=== PATIENT | female | born 1980 | race African-American/Black ===

== ENCOUNTER 2019-05-22 09:01 | Emergency (ER) | payer OTHER ==
[~2019-05-22] VITALS: Ht 160 cm; Wt 71.4 kg
--- NOTE | 2019-05-22 09:03 | NUR ---
Patient transferred to bed 6 via wheelchair by tech. RN evaluating patient at bedside.
[2019-05-22 09:10] VITALS: BP 129/87
--- NOTE | 2019-05-22 09:10 | NUR ---
Dr. Whitten evaluating patient at bedside.
--- NOTE | 2019-05-22 09:13 | NUR ---
Note undone in EDM - 05/22/19 at 0958 by MED PT C/O INTERMITENT LEFT FLANK PAIN WITH NAUSEA X 2 DAYS. LT FLANK TENDERNESS ON PALPATION. PATIENT STATES PAIN OF 0/10 AT THIS TIME; VSS; PATIENT POSITIONED FOR COMFORT; HOB ELEVATED; BEDRAILS UP X2; BED DOWN. ER MADE AWARE OF PT STATUS.
--- NOTE | 2019-05-22 09:13 | NUR ---
PT C/O INTERMITENT RIGHT FLANK PAIN WITH NAUSEA X 2 DAYS. RT FLANK TENDERNESS ON PALPATION. PATIENT STATES PAIN OF 9/10 AT THIS TIME; VSS; PATIENT POSITIONED FOR COMFORT; HOB ELEVATED; BEDRAILS UP X1; BED DOWN. ER MD MADE AWARE OF PT STATUS.
--- NOTE | 2019-05-22 09:13 | NUR ---
Note undone in EDM - 05/22/19 at 0958 by MED PT C/O INTERMITENT RIGHT FLANK PAIN WITH NAUSEA X 2 DAYS. RT FLANK TENDERNESS ON PALPATION. PATIENT STATES PAIN OF 0/10 AT THIS TIME; VSS; PATIENT POSITIONED FOR COMFORT; HOB ELEVATED; BEDRAILS UP X2; BED DOWN. ER MADE AWARE OF PT STATUS.
[2019-05-22] MEDS ORDERED: MORPHINE SULFATE 4 MG/ML SYR IVP ONE ×2 (09:15→10:30)
[2019-05-22] MEDS ORDERED: ONDANSETRON 4 MG/2 ML VIAL IVP ONE (09:15)
[2019-05-22 09:43] LABS: APPEARANCE,URINE SL CLOUDY (CLEAR); BASOPHILS # (AUTO) 0.1 K/uL (0.00-0.22); BASOPHILS % (AUTO) 0.8 % (0.0-2.0); BILIRUBIN,URINE NEGATIVE (NEGATIVE); BLOOD, URINE 3+ (NEGATIVE); COLOR,URINE YELLOW (YELLOW); EOSINOPHILS # (AUTO) 0.2 K/uL (0-0.4); EOSINOPHILS % (AUTO) 1.3 % (0.0-4.0); HEMATOCRIT 39.3 % (36-48); HEMOGLOBIN 12.5 g/dL (12.0-16.0); LEUKOCYTE ESTERASE ,URINE NEGATIVE (NEGATIVE); LYMPHOCYTES # (AUTO) 1.9 K/uL (2.5-16.5); MEAN CORPUSCULAR HEMOGLOBIN 28 pg (27-31); MEAN CORPUSCULAR HGB CONC 32 g/dL (33-37); MEAN CORPUSCULAR VOLUME 87.1 fL (80-94); MONOCYTES # (AUTO) 0.7 K/uL (0.8-1.0); MONOCYTES % (AUTO) 5.1 % (1.7-9.3); NEUTROPHILS # (AUTO) 10.6 K/uL (1.8-7.7); NEUTROPHILS % (AUTO) 78.8 % (42.2-75.2); NITRITE, URINE NEGATIVE (NEGATIVE); PLATELET COUNT (AUTO) 274 K/uL (140-450); RED BLOOD CELL COUNT(AUTO) 4.51 MIL/uL (4.20-5.40); RED CELL DISTRIBUTION WIDTH 13.4 % (11.6-13.7); UGLUCOSE NEGATIVE (NEGATIVE); WHITE BLOOD COUNT (AUTO) 13.4 K/uL (4.8-10.8)
[2019-05-22 09:48] LABS: ANION GAP 13.7 (8-16); CARBON DIOXIDE 23.1 mmol/L (21-32); CREATININE 0.8 mg/dL (0.6-1.3); POTASSIUM 3.8 mmol/L (3.5-5.1)
[2019-05-22 09:53] LABS: RBC,URINE 80-100 /HPF (0-5); WBC,URINE 0-5 /HPF (0-5)
[2019-05-22 09:54] LABS: ALBUMIN 3.2 g/dL (3.4-5.0); TOTAL BILIRUBIN 0.2 mg/dL (0.0-1.0)
[2019-05-22] MEDS ORDERED: NACL 0.9% 1,000 ML IV ONE (10:45)
--- NOTE | 2019-05-22 11:37 | NUR ---
SPOKE TO DR. SANDOVAL AND RECEIVED VERBAL ORDER OF AD[place] [place] RENAL STONES AND REGULAR DIET.
--- NOTE | 2019-05-22 11:38 | NUR ---
Dr. Tellez evaluating patient at bedside.
--- NOTE | 2019-05-22 11:38 | NUR ---
Isela rowell in ED - 05/22/[address] ROBERTSON IS EVALUATING PT AT BEDSIDE.
--- NOTE | 2019-05-22 11:39 | NUR ---
DR. ROBERTSON CANCELED PT'S ADMISSION.
[2019-05-22 11:51] VITALS: BP 127/63
--- NOTE | 2019-05-22 11:51 | NUR ---
Patient discharged with v/s stable. Written and verbal after care instructions given and explained. Patient verbalized understanding. Ambulatory with steady gait. All questions addressed prior to discharge. Advised to follow up with PMD. Dr. Tellez gave pt the prescription and note for work. Labs results and CT scan report and CD provided to pt. Educated pt regarding food choices and increase water intake to help pass renals tones.
== END 2019-05-22 11:51 | disposition home or self-care (01) ==
LOC: MED 09:01
DX: N13.9 Obstructive and reflux uropathy, unspecified (principal); N20.0 Calculus of kidney; F17.210 Nicotine dependence, cigarettes, uncomplicated; Z71.6 Tobacco abuse counseling
CPT/HCPCS: 36415; 74176; 80053; 81001; 81025; 83690; 85025; 96374; 96375; 96376; 99284; J2270; J2405; J7030

== ENCOUNTER 2019-08-01 11:43 | Emergency (ER) | payer OTHER ==
[~2019-08-01] VITALS: Ht 160 cm; Wt 72.6 kg
[2019-08-01 11:45] VITALS: BP 119/71
--- NOTE | 2019-08-01 11:45 | NUR ---
TO BED # 11 AMBULATORY
[2019-08-01] MEDS ORDERED: MORPHINE SULFATE 4 MG/ML SYR IVP ONE (11:55)
[2019-08-01] MEDS ORDERED: NACL 0.9% 1,000 ML IV ONE (11:55)
[2019-08-01] MEDS ORDERED: ONDANSETRON 4 MG/2 ML VIAL IVP ONE (11:55)
--- NOTE | 2019-08-01 11:56 | NUR ---
C/O LEFT FLANK PAIN 10/, RADIATING TO HER BACK STARTING LAST NIGHT. PT GRUNTING AND MOANING, HAS NOT TAKEN ANY MEDICATION FOR PAIN. DENIES N/V/D. DENIES DYSURIA. PT TACHY AT 100. PT ALERT AND AWAKE, FAMILY BEDSIDE.
--- NOTE | 2019-08-01 11:57 | NUR ---
dr bolanos at bedside
--- NOTE | 2019-08-01 12:00 | NUR ---
lab at bedside
--- NOTE | 2019-08-01 12:03 | NUR ---
PT ASSISTED TO RESTROOM, FAMILY MEMBER ASSISTING IN RESTROOM
--- NOTE | 2019-08-01 12:06 | NUR ---
US tech at bedside for exam.
--- NOTE | 2019-08-01 12:19 | NUR ---
NS BOLUS, MORPHINE, AND ZOFRAN ADMINISTERED BY SONA WESTBROOK
[2019-08-01 12:29] LABS: ANION GAP 17.1 (8-16); CARBON DIOXIDE 22.7 mmol/L (21-32); CREATININE 0.9 mg/dL (0.6-1.3); POTASSIUM 3.8 mmol/L (3.5-5.1)
[2019-08-01 12:35] LABS: ALBUMIN 3.5 g/dL (3.4-5.0); TOTAL BILIRUBIN 0.3 mg/dL (0.0-1.0)
[2019-08-01 12:59] LABS: APPEARANCE,URINE CLEAR (CLEAR); BILIRUBIN,URINE NEGATIVE (NEGATIVE); BLOOD, URINE NEGATIVE (NEGATIVE); COLOR,URINE YELLOW (YELLOW); LEUKOCYTE ESTERASE ,URINE NEGATIVE (NEGATIVE); NITRITE, URINE NEGATIVE (NEGATIVE); PH,URINE 5.5 (5.0-9.0); UGLUCOSE NEGATIVE (NEGATIVE)
[2019-08-01 13:01] LABS: BASOPHILS # (AUTO) 0.1 K/uL (0.00-0.22); BASOPHILS % (AUTO) 1.9 % (0.0-2.0); EOSINOPHILS # (AUTO) 0.3 K/uL (0-0.4); HEMATOCRIT 38.6 % (36-48); HEMOGLOBIN 12.5 g/dL (12.0-16.0); LYMPHOCYTES % (AUTO) 29.7 % (20.5-51.1); MEAN CORPUSCULAR HEMOGLOBIN 28 pg (27-31); MEAN CORPUSCULAR HGB CONC 32 g/dL (33-37); MEAN CORPUSCULAR VOLUME 85.9 fL (80-94); MONOCYTES # (AUTO) 0.3 K/uL (0.8-1.0); NEUTROPHILS # (AUTO) 4.1 K/uL (1.8-7.7); NEUTROPHILS % (AUTO) 59.4 % (42.2-75.2); PLATELET COUNT (AUTO) 267 K/uL (140-450); RED CELL DISTRIBUTION WIDTH 13.7 % (11.6-13.7); WHITE BLOOD COUNT (AUTO) 6.9 K/uL (4.8-10.8)
--- NOTE | 2019-08-01 13:25 | NUR ---
NADR AT THIS TIME, PAIN 04/29
[2019-08-01] MEDS ORDERED: KETOROLAC 30 MG/ML VIAL IM/IVP ONE (13:40)
--- NOTE | 2019-08-01 14:00 | NUR ---
TORADOL IVP ADMINISTERED BY GLEN RN FOR PTS PAIN 05/29 AT THIS TIME
--- NOTE | 2019-08-01 14:20 | NUR ---
NADRS . PAIN LEVEL AT 5/10
--- NOTE | 2019-08-01 14:53 | NUR ---
Dr. Ortega is re-evaluating the patient at bedside.
--- NOTE | 2019-08-01 15:04 | NUR ---
Patient discharged with v/s stable. Written and verbal after care instructions given and explained kidney stones. Patient alert, oriented and verbalized understanding of instructions. Ambulatory with steady gait. All questions addressed prior to discharge. ID band removed. Patient advised to follow up with PMD. Rx of norco,ibuprofen ,flomax,miralax, and zofran given. Patient educated on indication of medication including possible reaction and side effects. Opportunity to ask questions provided and answered.pt given excuse for work ,awake ,alert ,ambulatory with steady gait . advise pt not to drive when taking norco p.o.
[2019-08-01 15:06] VITALS: BP 119/71
== END 2019-08-01 15:04 | disposition home or self-care (01) ==
LOC: MED 11:43
DX: N20.0 Calculus of kidney (principal); K59.00 Constipation, unspecified; M54.9 Dorsalgia, unspecified; H57.89 Other specified disorders of eye and adnexa
CPT/HCPCS: 36415; 76770; 80053; 81003; 81025; 83690; 85025; 96374; 96375; 99284; J1885; J2270; J2405; Q0092

== ENCOUNTER 2019-08-19 05:24 | Emergency (ER) | payer OTHER ==
[~2019-08-19] VITALS: Ht 157.5 cm; Wt 59.0 kg
[2019-08-19 05:25] VITALS: BP 136/56
--- NOTE | 2019-08-19 05:25 | NUR ---
TO BED #04 VIA WHEELCHAIR
[2019-08-19] MEDS ORDERED: NACL 0.9% 500 ML IV ONE (05:33)
[2019-08-19] MEDS ORDERED: KETOROLAC 30 MG/ML VIAL IVP ONE (05:35)
[2019-08-19] MEDS ORDERED: ONDANSETRON 4 MG/2 ML VIAL IVP ONE (05:35)
--- NOTE | 2019-08-19 05:37 | NUR ---
PT C/O TINGLING SENSATION ON BILATERAL ARMS. STARTED AFTER FLANK PAIN STARTED.
--- NOTE | 2019-08-19 05:37 | NUR ---
38 Y/O FEMALE PRESENTS TO ED, C/O BILAT FLANK 05/29. PAIN STARTED A COUPLE OF DAYS AGO. PT C/O NAUSEA AND VOMITING. DENIES ANY DIARRHEA. BS ACTIVE X4 QUADRANTS. ABDOMEN SOFT AND NONTENDER. PT DENIES ANY CHEST PAIN. NO MEDICATIONS TAKEN PRIOR TO COMING TO ED. PT VSS. ERMD AWARE. AND SON AT BEDSIDE. WILL CONTINUE TO MONITOR.
[2019-08-19] MEDS ORDERED: MORPHINE SULFATE 2 MG/ML SYR IVP ONE ×2 (05:50→06:50)
--- NOTE | 2019-08-19 05:50 | NUR ---
PT MOVED TO BED 3 VIA [facility].
--- NOTE | 2019-08-19 05:50 | NUR ---
BLOOD AND URINE SENT TO LAB AT THIS TIME
--- NOTE | 2019-08-19 06:28 | NUR ---
PT TAKEN CT ON WHEELCHAIR
--- NOTE | 2019-08-19 07:05 | NUR ---
RECEIVED REPORT FROM DENNISE WESTBROOK.
--- NOTE | 2019-08-19 07:26 | NUR ---
PT WENT TO RESTROOM ACCOMPANIED BY FAMILY.
--- NOTE | 2019-08-19 07:31 | NUR ---
PT BACK ON BED PAIN LEVEL AT 10.
--- NOTE | 2019-08-19 08:10 | NUR ---
dr peralta at bedside ,explain lisa results to pt .
[2019-08-19 08:14] LABS: ANION GAP 21.8 (8-16); CARBON DIOXIDE 19.7 mmol/L (21-32); CREATININE 1.2 mg/dL (0.6-1.3); POTASSIUM 3.5 mmol/L (3.5-5.1)
[2019-08-19] MEDS ORDERED: HYDROcodone/APAP 10/325 MG 1 TAB TAB PO SCH (08:15)
[2019-08-19 08:17] LABS: APPEARANCE,URINE CLEAR (CLEAR); BILIRUBIN,URINE NEGATIVE (NEGATIVE); BLOOD, URINE NEGATIVE (NEGATIVE); LEUKOCYTE ESTERASE ,URINE NEGATIVE (NEGATIVE); NITRITE, URINE NEGATIVE (NEGATIVE); UGLUCOSE NEGATIVE (NEGATIVE)
--- NOTE | 2019-08-19 08:22 | NUR ---
gave meds to pt.
[2019-08-19 08:35] LABS: COLOR,URINE STRAW (YELLOW)
[2019-08-19 08:52] VITALS: BP 139/79
--- NOTE | 2019-08-19 08:52 | NUR ---
Patient discharged with v/s stable. Written and verbal after care instructions given and explained kidney stones. Patient alert, oriented and verbalized understanding of instructions. Ambulatory with steady gait. All questions addressed prior to discharge. ID band removed. Patient advised to follow up with PMD. Rx of norco and flomax given. Patient educated on indication of medication including possible reaction and side effects. Opportunity to ask questions provided and answered.pt given excuse from work.
== END 2019-08-19 08:52 | disposition home or self-care (01) ==
LOC: MED 05:24
DX: N20.0 Calculus of kidney (principal); R11.2 Nausea with vomiting, unspecified; R00.0 Tachycardia, unspecified
CPT/HCPCS: 36415; 74176; 80048; 81003; 96361; 96374; 96375; 96376; 99284; J1885; J2270; J2405; J7030

== ENCOUNTER 2019-10-20 10:10 | Emergency (ER) | payer SELFPAY ==
[~2019-10-20] VITALS: Ht 160 cm; Wt 68.0 kg
[2019-10-20 10:29] VITALS: BP 130/73
--- NOTE | 2019-10-20 10:47 | NUR ---
38 Y/O F C/C LEFT SIDE BACK PAIN 10/10, STABBING SENSATION, DUE TO KIDNEY STONES X 1 YEAR. PER PT PAIN PROGRESSIVELY WORSE. PT NKA. HX MIGRAINES,STONES. NO RX. COMPLAINTS OF NAUSEA, AND TINGLING SENSATION ON BILATERAL FINGERS. NEURO WDL, CMS/ROM WDL. SIDE RAIL X1.
[2019-10-20] MEDS ORDERED: KETOROLAC 30 MG/ML VIAL IVP ONE (10:50)
[2019-10-20] MEDS ORDERED: NACL 0.9% 1,000 ML IV ONE (10:50)
--- NOTE | 2019-10-20 12:18 | NUR ---
ERMD NOTIFIED OF PT PAIN STATUS
--- NOTE | 2019-10-20 12:23 | NUR ---
ERMD AT BEDSIDE
[2019-10-20] MEDS ORDERED: MORPHINE SULFATE 4 MG/ML SYR IVP ONE (12:25)
--- NOTE | 2019-10-20 12:25 | NUR ---
PT RESTING IN BED, SIDE RAIL X1
[2019-10-20 13:18] LABS: BASOPHILS # (AUTO) 0.1 K/uL (0.00-0.22); BASOPHILS % (AUTO) 1.2 % (0.0-2.0); EOSINOPHILS # (AUTO) 0.3 K/uL (0-0.4); EOSINOPHILS % (AUTO) 4.1 % (0.0-4.0); HEMATOCRIT 37.3 % (36-48); HEMOGLOBIN 12.6 g/dL (12.0-16.0); LYMPHOCYTES # (AUTO) 2.5 K/uL (2.5-16.5); MEAN CORPUSCULAR HEMOGLOBIN 29 pg (27-31); MEAN CORPUSCULAR HGB CONC 34 g/dL (33-37); MEAN CORPUSCULAR VOLUME 84.5 fL (80-94); MONOCYTES # (AUTO) 0.4 K/uL (0.8-1.0); MONOCYTES % (AUTO) 6.1 % (1.7-9.3); NEUTROPHILS # (AUTO) 3.9 K/uL (1.8-7.7); NEUTROPHILS % (AUTO) 54.6 % (42.2-75.2); PLATELET COUNT (AUTO) 245 K/uL (140-450); RED BLOOD CELL COUNT(AUTO) 4.42 MIL/uL (4.20-5.40); RED CELL DISTRIBUTION WIDTH 13.3 % (11.6-13.7); WHITE BLOOD COUNT (AUTO) 7.2 K/uL (4.8-10.8)
[2019-10-20 13:29] LABS: APPEARANCE,URINE CLEAR (CLEAR); BILIRUBIN,URINE NEGATIVE (NEGATIVE); BLOOD, URINE NEGATIVE (NEGATIVE); COLOR,URINE YELLOW (YELLOW); LEUKOCYTE ESTERASE ,URINE NEGATIVE (NEGATIVE); NITRITE, URINE NEGATIVE (NEGATIVE); UGLUCOSE NEGATIVE (NEGATIVE)
--- NOTE | 2019-10-20 13:34 | NUR ---
PT RESTING IN BED, SIDE RAIL X1
[2019-10-20 13:47] LABS: ALBUMIN 3.7 g/dL (3.4-5.0); ANION GAP 8.5 (8-16); CARBON DIOXIDE 29.2 mmol/L (21-32); CREATININE 0.7 mg/dL (0.6-1.3); POTASSIUM 3.7 mmol/L (3.5-5.1); TOTAL BILIRUBIN 0.4 mg/dL (0.0-1.0)
--- NOTE | 2019-10-20 13:55 | NUR ---
ERMD AT BEDSIDE
[2019-10-20 14:14] VITALS: BP 128/71
--- NOTE | 2019-10-20 14:14 | NUR ---
Patient discharged with v/s stable. Written and verbal after care instructions given and explained. Patient alert, oriented and verbalized understanding of instructions. Ambulatory with steady gait. All questions addressed prior to discharge. ID band removed. Patient advised to follow up with PMD. Rx of MOTRIN,NORCO given. Patient educated on indication of medication including possible reaction and side effects. Opportunity to ask questions provided and answered.
== END 2019-10-20 14:14 | disposition home or self-care (01) ==
LOC: MED 10:10
DX: R10.11 Right upper quadrant pain (principal); G43.909 Migraine, unspecified, not intractable, without status migrainosus; F17.210 Nicotine dependence, cigarettes, uncomplicated; Z98.890 Other specified postprocedural states
CPT/HCPCS: 36415; 76705; 80053; 81003; 81025; 83690; 85025; 96374; 96375; 99284; J1885; J2270; J7030; Q0092

== ENCOUNTER 2019-11-27 12:16 | Emergency (ER) | payer SELFPAY ==
[~2019-11-27] VITALS: Ht 160 cm; Wt 68.0 kg
[2019-11-27 12:18] VITALS: BP 131/75
[2019-11-27] MEDS ORDERED: KETOROLAC 30 MG/ML VIAL IVP ONE (12:35)
[2019-11-27 12:50] LABS: BASOPHILS # (AUTO) 0.1 K/uL (0.00-0.22); BASOPHILS % (AUTO) 1.3 % (0.0-2.0); EOSINOPHILS # (AUTO) 0.5 K/uL (0-0.4); EOSINOPHILS % (AUTO) 7.2 % (0.0-4.0); HEMATOCRIT 38.6 % (36-48); HEMOGLOBIN 12.4 g/dL (12.0-16.0); MEAN CORPUSCULAR HEMOGLOBIN 28 pg (27-31); MEAN CORPUSCULAR HGB CONC 32 g/dL (33-37); MEAN CORPUSCULAR VOLUME 87.6 fL (80-94); MONOCYTES # (AUTO) 0.5 K/uL (0.8-1.0); MONOCYTES % (AUTO) 7.3 % (1.7-9.3); NEUTROPHILS # (AUTO) 3.9 K/uL (1.8-7.7); NEUTROPHILS % (AUTO) 55.2 % (42.2-75.2); PLATELET COUNT (AUTO) 226 K/uL (140-450); RED CELL DISTRIBUTION WIDTH 13.4 % (11.6-13.7)
[2019-11-27] MEDS ORDERED: MORPHINE SULFATE 4 MG/ML SYR IVP ONE (13:05)
[2019-11-27 13:10] LABS: ALBUMIN 3.6 g/dL (3.4-5.0); ANION GAP 11.7 (8-16); CARBON DIOXIDE 26.3 mmol/L (21-32); CREATININE 0.9 mg/dL (0.6-1.3); TOTAL BILIRUBIN 0.3 mg/dL (0.0-1.0)
[2019-11-27 13:21] LABS: APPEARANCE,URINE CLEAR (CLEAR); BILIRUBIN,URINE NEGATIVE (NEGATIVE); BLOOD, URINE NEGATIVE (NEGATIVE); COLOR,URINE YELLOW (YELLOW); LEUKOCYTE ESTERASE ,URINE NEGATIVE (NEGATIVE); NITRITE, URINE NEGATIVE (NEGATIVE); PH,URINE 6.5 (5.0-9.0); UGLUCOSE NEGATIVE (NEGATIVE)
[2019-11-27 13:59] VITALS: BP 118/85
== END 2019-11-27 13:59 | disposition home or self-care (01) ==
LOC: MED 12:16
DX: N20.0 Calculus of kidney (principal); Z87.442 Personal history of urinary calculi
CPT/HCPCS: 36415; 74176; 80053; 81003; 81025; 85025; 96374; 96375; 99284; J1885; J2270

== ENCOUNTER 2020-02-01 13:24 | Emergency (ER) | payer MEDICAID ==
[~2020-02-01] VITALS: Ht 160 cm; Wt 63.0 kg
[2020-02-01 13:29] VITALS: BP 130/74
--- NOTE | 2020-02-01 13:35 | NUR ---
PT WHEELCHAIRED TO ER BED 04
[2020-02-01 13:59] LABS: BASOPHILS # (AUTO) 0.1 K/uL (0.00-0.22); BASOPHILS % (AUTO) 0.6 % (0.0-2.0); EOSINOPHILS # (AUTO) 0.1 K/uL (0-0.4); HEMATOCRIT 39.3 % (36-48); HEMOGLOBIN 12.7 g/dL (12.0-16.0); LYMPHOCYTES # (AUTO) 2.9 K/uL (2.5-16.5); LYMPHOCYTES % (AUTO) 25.9 % (20.5-51.1); MEAN CORPUSCULAR HEMOGLOBIN 28 pg (27-31); MEAN CORPUSCULAR HGB CONC 32 g/dL (33-37); MEAN CORPUSCULAR VOLUME 86.4 fL (80-94); MONOCYTES # (AUTO) 0.9 K/uL (0.8-1.0); NEUTROPHILS # (AUTO) 7.2 K/uL (1.8-7.7); NEUTROPHILS % (AUTO) 64.5 % (42.2-75.2); PLATELET COUNT (AUTO) 280 K/uL (140-450); RED BLOOD CELL COUNT(AUTO) 4.54 MIL/uL (4.20-5.40); WHITE BLOOD COUNT (AUTO) 11.2 K/uL (4.8-10.8)
--- NOTE | 2020-02-01 14:05 | NUR ---
C/O STABBING PAIN TO L LOWER BACK RADIATING TO LLQ AND R LOWER BACK X2 DAYS 05/29 ACCOMPANIED BY NAUSEA. PT STATES SHE HAS BEEN MOVING ALOT OF BOXES OVER THE LAST FEW DAYS AND IT FEELS LIKE MORE OF A MUSCULAR PAIN. DENIES DYSURIA. LBM YESTERDAY, NORMAL PER PT. BED IN LOW POSITION, PT PROVIDED WITH GOWN.
[2020-02-01 14:13] LABS: ANION GAP 15.4 (8-16); POTASSIUM 3.4 mmol/L (3.5-5.1)
[2020-02-01] MEDS ORDERED: KETOROLAC 30 MG/ML VIAL IVP ONE (14:20)
[2020-02-01] MEDS ORDERED: NACL 0.9% 1,000 ML IV ONE (14:20)
--- NOTE | 2020-02-01 14:31 | NUR ---
PT LEFT TO CT VIA [facility]
--- NOTE | 2020-02-01 15:20 | NUR ---
pt resting in bed, no new needs at this time
[2020-02-01 16:10] VITALS: BP 132/86
--- NOTE | 2020-02-01 16:10 | NUR ---
Patient discharged with v/s stable. Written and verbal after care instructions given and explained. Patient alert, oriented and verbalized understanding of instructions. Ambulatory with steady gait. All questions addressed prior to discharge. ID band removed. Patient advised to follow up with PMD. Rx of ibuprofen, fluconazole, phenazopyridine & keflex given. Patient educated on indication of medication including possible reaction and side effects. Opportunity to ask questions provided and answered.
== END 2020-02-01 16:10 | disposition home or self-care (01) ==
LOC: MED 13:24
DX: N39.0 Urinary tract infection, site not specified (principal); N12 Tubulo-interstitial nephritis, not specified as acute or chronic; F17.200 Nicotine dependence, unspecified, uncomplicated; Z98.890 Other specified postprocedural states; Z87.442 Personal history of urinary calculi
CPT/HCPCS: 36415; 74176; 80048; 81002; 81025; 85025; 96374; 99284; J1885; J7030

== ENCOUNTER 2020-05-03 10:59 | Emergency (ER) | payer MEDICAID ==
[~2020-05-03] VITALS: Ht 160 cm; Wt 67.1 kg
[~2020-05-03 10:59] MED LIST: CEPH250C16 PO; TAMS0.4C96 PO
[2020-05-03 11:08] VITALS: BP 94/32
--- NOTE | 2020-05-03 11:16 | NUR ---
PT W/C ASSISTED TO BED 12.
--- NOTE | 2020-05-03 11:19 | NUR ---
39 YO FEMALE C/O NAUSEA, LOWER ABD PAIN, LOWER BACK PAIN X 2 WEEKS. MED HX: KIDNEYS STONES, C SECTION
[2020-05-03] MEDS ORDERED: KETOROLAC 30 MG/ML VIAL IVP ONE (11:25)
[2020-05-03] MEDS ORDERED: ONDANSETRON 4 MG/2 ML VIAL IVP ONE (11:25)
[2020-05-03] MEDS ORDERED: NACL 0.9% 1,000 ML IV ONE (11:25)
--- NOTE | 2020-05-03 11:39 | NUR ---
US AT BEDSIDE
[2020-05-03 12:03] LABS: BASOPHILS # (AUTO) 0.1 K/uL (0.00-0.22); BASOPHILS % (AUTO) 1.5 % (0.0-2.0); EOSINOPHILS # (AUTO) 0.4 K/uL (0-0.4); HEMATOCRIT 36.7 % (36-48); HEMOGLOBIN 11.9 g/dL (12.0-16.0); LYMPHOCYTES # (AUTO) 1.4 K/uL (2.5-16.5); LYMPHOCYTES % (AUTO) 22.2 % (20.5-51.1); MEAN CORPUSCULAR HEMOGLOBIN 28 pg (27-31); MEAN CORPUSCULAR HGB CONC 32 g/dL (33-37); MEAN CORPUSCULAR VOLUME 87.3 fL (80-94); MONOCYTES # (AUTO) 0.4 K/uL (0.8-1.0); MONOCYTES % (AUTO) 7.2 % (1.7-9.3); NEUTROPHILS # (AUTO) 3.9 K/uL (1.8-7.7); NEUTROPHILS % (AUTO) 63.1 % (42.2-75.2); PLATELET COUNT (AUTO) 261 K/uL (140-450); RED CELL DISTRIBUTION WIDTH 13.2 % (11.6-13.7); WHITE BLOOD COUNT (AUTO) 6.2 K/uL (4.8-10.8)
[2020-05-03 12:15] LABS: APPEARANCE,URINE CLEAR (CLEAR); BILIRUBIN,URINE NEGATIVE (NEGATIVE); BLOOD, URINE NEGATIVE (NEGATIVE); COLOR,URINE YELLOW (YELLOW); LEUKOCYTE ESTERASE ,URINE NEGATIVE (NEGATIVE); NITRITE, URINE NEGATIVE (NEGATIVE); PH,URINE 7.5 (5.0-9.0); UGLUCOSE NEGATIVE (NEGATIVE)
[2020-05-03 12:42] LABS: ALBUMIN 3.6 g/dL (3.4-5.0); ANION GAP 9.6 (8-16); CARBON DIOXIDE 26.3 mmol/L (21-32); CREATININE 0.8 mg/dL (0.6-1.3); POTASSIUM 3.9 mmol/L (3.5-5.1); TOTAL BILIRUBIN 0.4 mg/dL (0.0-1.0)
--- NOTE | 2020-05-03 13:01 | NUR ---
Patient discharged with v/s stable. Written and verbal after care instructions given and explained. Patient alert, oriented and verbalized understanding of instructions. Ambulatory with steady gait. All questions addressed prior to discharge. ID band removed. Patient advised to follow up with PMD. Rx of naprosyn/ zofran odt given. Patient educated on indication of medication including possible reaction and side effects. Opportunity to ask questions provided and answered. ultrasound and lab results handed to pt
[2020-05-03 13:02] VITALS: BP 133/67
== END 2020-05-03 13:01 | disposition home or self-care (01) ==
LOC: MED 10:59
DX: N21.1 Calculus in urethra (principal); F15.10 Other stimulant abuse, uncomplicated; Z79.2 Long term (current) use of antibiotics; Z79.899 Other long term (current) drug therapy; F17.210 Nicotine dependence, cigarettes, uncomplicated; F12.10 Cannabis abuse, uncomplicated
CPT/HCPCS: 36415; 76770; 80053; 81003; 83605; 85025; 87040; 87086; 96361; 96374; 96375; 99284; J1885; J2405; Q0092

== ENCOUNTER 2020-07-28 12:31 | Emergency (ER) | payer MEDICAID, OTHER ==
[~2020-07-28] VITALS: Ht 160 cm; Wt 68.0 kg
[2020-07-28 13:14] VITALS: BP 137/74
--- NOTE | 2020-07-28 13:21 | NUR ---
GIANCARLO. HANDED ON URINE CUP.
--- NOTE | 2020-07-28 13:31 | NUR ---
PT TAKEN TO BED 4 VIA W/C.
--- NOTE | 2020-07-28 13:31 | NUR ---
Isela rowell in [facility] - 07/28/20 at 1332 by MED1 PT W/C ASSISTED TO BED 4.
[2020-07-28] MEDS ORDERED: ONDANSETRON 4 MG/2 ML VIAL IVP ONE (13:35)
[2020-07-28] MEDS ORDERED: KETOROLAC 30 MG/ML VIAL IVP ONE (13:35)
--- NOTE | 2020-07-28 13:45 | NUR ---
39 year old female presents ambulatory to ED. C/O LEFT FLANK PAIN X 1 DAY RADIATING TO LEFT UPPER BACK AND LEFT LOWER ABD. A/O X 4, VSS, NAD, RR EVEN AND UNLABORED, SHALLOW RAPID BREATHING R/T PAIN. IV 20 G TO LAC ON FIRST ATTEMPT. URINE TO LAB, TORADOL 30MG IVP WITH 4MG ZOFRAN IVP. WILL CONTINUE TO MONITOR.
[2020-07-28 14:08] LABS: BASOPHILS # (AUTO) 0.1 K/uL (0.00-0.22); BASOPHILS % (AUTO) 0.8 % (0.0-2.0); EOSINOPHILS % (AUTO) 0.5 % (0.0-4.0); HEMATOCRIT 33.1 % (36-48); HEMOGLOBIN 11.1 g/dL (12.0-16.0); LYMPHOCYTES # (AUTO) 1.7 K/uL (2.5-16.5); LYMPHOCYTES % (AUTO) 20.5 % (20.5-51.1); MEAN CORPUSCULAR HEMOGLOBIN 29 pg (27-31); MEAN CORPUSCULAR HGB CONC 34 g/dL (33-37); MEAN CORPUSCULAR VOLUME 86.4 fL (80-94); MONOCYTES # (AUTO) 0.6 K/uL (0.8-1.0); MONOCYTES % (AUTO) 7.3 % (1.7-9.3); NEUTROPHILS # (AUTO) 5.7 K/uL (1.8-7.7); NEUTROPHILS % (AUTO) 70.9 % (42.2-75.2); PLATELET COUNT (AUTO) 224 K/uL (140-450); RED BLOOD CELL COUNT(AUTO) 3.83 MIL/uL (4.20-5.40); RED CELL DISTRIBUTION WIDTH 13.2 % (11.6-13.7); WHITE BLOOD COUNT (AUTO) 8.1 K/uL (4.8-10.8)
[2020-07-28] MEDS ORDERED: MORPHINE SULFATE 4 MG/ML SYR IVP ONE ×2 (14:10→15:45)
--- NOTE | 2020-07-28 14:20 | NUR ---
TORADOL DOES NOT PROVIDE RELIEF, MORPHINE 4MG IVP GIVEN. WILL REASSESS IN 15 MINUTES.
--- NOTE | 2020-07-28 14:35 | NUR ---
RELIEF NOT PROVIDED AFTER [address]MG MORPHINE IVP. DR ALAN AWARE, NO NEW ORDERS.
[2020-07-28 14:55] LABS: ALBUMIN 4.1 g/dL (3.4-5.0); ANION GAP 15.3 (8-16); CARBON DIOXIDE 24.2 mmol/L (21-32); CREATININE 0.8 mg/dL (0.6-1.3); POTASSIUM 3.5 mmol/L (3.5-5.1); TOTAL BILIRUBIN 0.6 mg/dL (0.0-1.0)
[2020-07-28 15:16] LABS: APPEARANCE,URINE CLEAR (CLEAR); BILIRUBIN,URINE NEGATIVE (NEGATIVE); BLOOD, URINE NEGATIVE (NEGATIVE); COLOR,URINE YELLOW (YELLOW); LEUKOCYTE ESTERASE ,URINE NEGATIVE (NEGATIVE); NITRITE, URINE NEGATIVE (NEGATIVE); PH,URINE 7.5 (5.0-9.0); UGLUCOSE NEGATIVE (NEGATIVE)
[2020-07-28] MEDS ORDERED: PHENAZOPYRIDINE 100 MG TAB PO ONE (17:00)
[2020-07-28] MEDS ORDERED: HYDROcodone/APAP 5/325 MG 1 TAB TAB PO ONE (17:00)
--- NOTE | 2020-07-28 17:08 | NUR ---
HOLDING ON ADMINISTERING 10MG NORCO DUE TO JUST ADMINISTERING MORPHINE 30 MIN PRIOR
[2020-07-28 17:50] VITALS: BP 123/84
--- NOTE | 2020-07-28 17:50 | NUR ---
Patient discharged with v/s stable. Written and verbal after care instructions given and explained. Patient alert, oriented and verbalized understanding of instructions. Ambulatory with steady gait. All questions addressed prior to discharge. ID band removed. Patient advised to follow up with PMD. Rx of PYRIDIUM,NORCO, NAPROSYN given. Patient educated on indication of medication including possible reaction and side effects. Opportunity to ask questions provided and answered.
== END 2020-07-28 17:50 | disposition home or self-care (01) ==
LOC: MED 12:31
DX: N23 Unspecified renal colic (principal); R03.0 Elevated blood-pressure reading, without diagnosis of hypertension; R11.2 Nausea with vomiting, unspecified; F12.90 Cannabis use, unspecified, uncomplicated; Z87.442 Personal history of urinary calculi; Z79.899 Other long term (current) drug therapy
CPT/HCPCS: 36415; 74176; 80053; 81003; 81025; 85025; 96374; 96375; 96376; 99284; J1885; J2270; J2405